=== PATIENT | female | born 1965 | race Caucasian/White ===

== ENCOUNTER 2019-01-11 15:37 | Emergency (ER) | payer OTHER, SELFPAY ==
[2019-01-11 15:43] VITALS: BP 168/93; PULSE 61; RESP 14; TEMP 36.2; O2SAT 99; BMI 25.1
--- NOTE | 2019-01-11 16:46 | ED.WOUNDLAC ---
HPI - Wound/Laceration <REY Collins - Last Filed: 01/11/19 19:12> General Chief Complaint: Wound/Laceration Stated Complaint: Took Tip of Rt finger off the pruning nba Time Seen by Provider: 01/11/19 16:35 Source: patient and family Mode of arrival: Ambulatory Limitations: no limitations History of Present Illness HPI narrative: The patient is a 53-year-old female who presents for chief complaint of laceration. She states that she cut the tip of her finger off with pruning nba while working in her garden. She states she cut her right ring finger at the tip. She does not know when her last tetanus was. She states she help pressure. She states that she tried to bring the flap of skin that she could off to be reattached, but it blew away in the wind. She states that she has full range of motion in her right fingers Related Data Home Medications Medication Instructions Recorded Confirmed fluticasone propionate 1 spray INTRANASAL DIRECTED 01/11/19 01/11/19 levothyroxine [Synthroid] 125 mcg PO DAILY 01/11/19 01/11/19 loratadine 10 mg PO DAILY 01/11/19 01/11/19 Allergies Allergy/AdvReac Type Severity Reaction Status Date / Time Penicillins Allergy Verified 01/11/19 15:43 Review of Systems <EBER Collins - Last Filed: 01/11/19 19:12> Review of Systems Narrative: GENERAL: Denies chills, fatigue, malaise, fever, sweats. HEENT: Denies sinus pain, ear pain, sore throat, difficulty swallowing, dizziness. RESPIRATORY: Denies dyspnea, cough, wheezing, hemoptysis, sputum. CARDIOVASCULAR: Denies chest pain, palpitations, orthopnea, edema, GASTROINTESTINAL: Denies nausea, vomiting, abdominal pain, diarrhea, constipation, melena. : Denies dysuria, frequency, incontinence, hematuria, urinary retention. MUSCULOSKELETAL: denies weakness, joint pain, or bony pain SKIN: See HPI NEUROLOGIC: Denies weakness, headache, numbness, change in speech, confusion, seizures, incoordination. PSYCHIATRIC: No concerning psychosocial issues. 12 point review of systems is negative except for those stated above Exam <EBER Collins - Last Filed: 01/11/19 19:12> Narrative Exam Narrative: GENERAL: This is a well-nourished, well-developed patient, in no acute distress HEAD: Atraumatic. Normocephalic. No temporal or scalp tenderness. EYES: Pupils equal round and reactive. Extraocular motions intact. No scleral icterus. No injection or drainage. ENT: Nose without bleeding, purulent drainage or septal hematoma. Throat without erythema, tonsillar hypertrophy or exudate. Uvula midline. Airway patent. NECK: Trachea midline. No JVD or lymphadenopathy. Supple, nontender, no meningeal signs. CARDIOVASCULAR: Regular rate and rhythm RESPIRATORY: No cough. No increased respiratory effort. No accessory muscle use EXTREMITIES: Full range of motion noted right fingers. BACK: Nontender without deformity or crepitance. No flank tenderness. NEURO: AOx3. SKIN: 1 cm avulsion noted to tip of right 4th digit. Oozing blood. No obvious muscle or tendon involvement. Initial Vital Signs Initial Vital Signs: Vital Signs Temperature 97.1 F L 01/11/19 15:43 Pulse Rate 61 01/11/19 15:43 Respiratory Rate 14 01/11/19 15:43 Blood Pressure 168/93 H 01/11/19 15:43 Pulse Oximetry 99 01/11/19 15:43 <Mario Castro DO - Last Filed: 01/11/19 19:25> Initial Vital Signs Initial Vital Signs: Vital Signs Temperature 97.1 F L 01/11/19 15:43 Pulse Rate 61 01/11/19 15:43 Respiratory Rate 14 01/11/19 15:43 Blood Pressure 168/93 H 01/11/19 15:43 Pulse Oximetry 99 01/11/19 15:43 Course <DARYL Collins-ULISES - Last Filed: 01/11/19 19:12> Orders Ordered: Discontinued Medications Diphtheria/Tetanus/Acell Pertussis (Adacel) 0.5 ml IM .ONCE ONE Stop: 01/11/19 16:44 Last Admin: 01/11/19 16:50 Dose: 0.5 ml Documented by: SPENCER Vital Signs Vital signs: Vital Signs - 8 hr 01/11/19 15:43 01/11/19 17:48 Temperature 97.1 F L Pulse Rate 61 70 Respiratory Rate 14 18 Blood Pressure 168/93 H Blood Pressure [Left Arm] 122/78 Pulse Oximetry 99 98 <Mario Castro DO - Last Filed: 01/11/19 19:25> Orders Ordered: Discontinued Medications Diphtheria/Tetanus/Acell Pertussis (Adacel) 0.5 ml IM .ONCE ONE Stop: 01/11/19 16:44 Last Admin: 01/11/19 16:50 Dose: 0.5 ml Documented by: SPENCER Vital Signs Vital signs: Vital Signs - 8 hr 01/11/19 15:43 01/11/19 17:48 Temperature 97.1 F L Pulse Rate 61 70 Respiratory Rate 14 18 Blood Pressure 168/93 H Blood Pressure [Left Arm] 122/78 Pulse Oximetry 99 98 MDM - Wound/Laceration <DARYL Collins-BC - Last Filed: 01/11/19 19:12> MDM Narrative Medical decision making narrative: The patient is a 53-year-old female presenting with an avulsion laceration to her right 4th digit. Hemostasis was achieved and the wound was cleansed with Hibiclens. The patient and her declined an x-ray. The patient's tetanus updated. Wound was dressed by nursing with Surgicel. I discussed at length monitoring for signs and symptoms of infection such as redness pus etc. Patient states understanding of return precautions as well as follow-up care. She has no questions or concerns upon discharge Discharge Plan Departure Patient Disposition: Home Clinical Impression: Avulsion of skin Discharge Date/Time: 01/11/19 17:53 Instructions: DI for Avulsion Laceration (Not Requiring Sutures) Activity Restrictions/Additional Instructions: Today we updated your tetanus. Please monitor your avulsion for signs and symptoms of infection such as redness, pus etc. Please follow up with primary care provider. Please come back to the emergency department for any acute concerns. Prescriptions: No Action levothyroxine [Synthroid] 125 mcg tablet 125 mcg PO DAILY RF: 0 fluticasone propionate 50 mcg/actuation spray,suspension 1 spray INTRANASAL DIRECTED RF: 0 loratadine 10 mg tablet 10 mg PO DAILY RF: 0 Referrals: Jami Nuno ARNP [Primary Care Provider] - <Mario Castro DO - Last Filed: 01/11/19 19:25> Sign Out Provider Sign Out Attestation: I was available for consultation during this patient's emergency department visit. This chart is signed by myself for administrative purposes only. I did not have direct contact with this patient during this visit. They were seen independently by the APC.
[2019-01-11] MEDS: TET,DIPH,PERTUSS(ACELL),VAC/PF 0.5 ML SYRINGE IM (16:50)
[2019-01-11 17:48] VITALS: BP 122/78; PULSE 70; RESP 18; O2SAT 98
== END 2019-01-11 17:53 | disposition home or self-care (01) ==
PROVIDERS: Emergency Provider Nurse Practitioner Family; PCP Nurse Practitioner Family
DX: S68.124A Partial traumatic metacarpophalangeal amputation of right ring finger, initial encounter (principal); W27.1XXA Contact with garden tool, initial encounter
CPT/HCPCS: 90471; 99282; 99283; 90715

== ENCOUNTER → 2019-05-21 14:53 | Outpatient (CLI) | payer OTHER, SELFPAY | PROVIDERS: PCP Nurse Practitioner Family; Referring Provider Family Medicine; Visit Provider Family Medicine | DX: E07.9 Disorder of thyroid, unspecified (principal); Z82.62 Family history of osteoporosis | CPT/HCPCS: 77080 ==

== ENCOUNTER → 2023-07-17 15:21 | Outpatient (CLI) | payer OTHER, SELFPAY ==
[2023-07-17 17:02] LABS: Add Manual Diff / Slide Review NO; Basophils Absolute Auto 100 /uL (0-100); Basophils Percent Auto 0.7 % (0-2); Eosinophils Absolute Auto 100 /uL (0-450); Eosinophils Percent Auto 1.4 % (2-4); Hematocrit 43.8 % (36-46); Hemoglobin 15.2 g/dL (12.0-16.0); Lymphocytes Absolute Auto 2500 /uL (1100-4500); Lymphocytes Percent Auto 32.1 % (25-40); Mean Corpuscular HGB Conc 34.7 % (30-36); Mean Corpuscular Hemoglobin 32.9 PG (26-34); Mean Corpuscular Volume 94.6 fL (80-100); Monocytes Absolute Auto 500 /uL (0-900); Monocytes Percent Auto 6.2 % (3-14); Neutrophils Absolute Auto 4600 /uL (1500-7000); Neutrophils Percent Auto 59.6 % (50-75); Platelet Count 220 X10^3/uL (150-400); Red Blood Cell Count 4.63 X10^6/uL (4.0-5.2); Red Cell Distribution Width 12.3 % (11.6-14.8); White Blood Cell Count 7.7 X10^3/uL (4.5-11.0)
[2023-07-17 17:38] LABS: Vitamin D 25 Hydroxy (D3) 57.2 ng/mL (30.0-100.0)
[2023-07-17 17:57] LABS: Hemoglobin A1C% w Est Avg Glu 5.9 % (4.0-6.0)
[2023-07-17 17:59] LABS: Albumin 4.7 g/dL (3.5-5.0); BUN Creatinine Ratio 29.5 (6-22); Blood Urea Nitrogen 23 mg/dL (7-17); Calcium 9.7 mg/dL (8.4-10.2); Carbon Dioxide 37 mmol/L (22-32); Chloride 99 mmol/L (98-107); Estimated Glomerular Filt Rate > 60 mL/min (>60); Glucose 92 mg/dL (70-100); HEMOLYSIS < 15 (0-50); Potassium 3.6 mmol/L (3.4-5.1); Sodium 138 mmol/L (137-145)
[2023-07-17 18:12] LABS: Prealbumin 33.8 mg/dL (17.6-36.0)
== END ==
LOC: RESP 15:23
PROVIDERS: PCP Student in an Organized Health Care Education/Training Program; Referring Provider Orthopaedic Surgery Adult Reconstructive Orthopaedic Surgery; Visit Provider Orthopaedic Surgery Adult Reconstructive Orthopaedic Surgery
DX: Z01.818 Encounter for other preprocedural examination (principal); R77.0 Abnormality of albumin; E55.9 Vitamin D deficiency, unspecified; Z01.812 Encounter for preprocedural laboratory examination; R73.9 Hyperglycemia, unspecified
CPT/HCPCS: 36415; 80048; 82040; 82306; 83036; 84134; 85025; 93005